=== PATIENT | male | born 1965 | race Hispanic/Latino ===

== ENCOUNTER 2020-10-09 06:29 | Day surgery (SDC) | payer OTHER ==
[~2020-10-09] VITALS: Ht 167.6 cm; Wt 81.6 kg
[~2020-10-09 06:29] MED LIST: 0.9%NACL 1000ML 1,000 ML IV ONE; ALLO300T2 PO; VITAD50000 PO
[2020-10-09 07:32] VITALS: BP 150/81
[2020-10-09] MEDS ORDERED: PROPOFOL 10 MG/ML 20ML VIAL IV ONE ×2 (08:23)
[2020-10-09 08:40] VITALS: BP 110/71
[2020-10-09 08:57] VITALS: BP 135/85
[2020-10-09 09:13] VITALS: BP 139/89
== END 2020-10-09 09:16 | disposition home or self-care (01) ==
LOC: DAH 06:29 → ENDO 06:29
PROVIDERS: ATTEND Internal Medicine Gastroenterology
DX: Z12.11 Encounter for screening for malignant neoplasm of colon (principal); Z20.822 Contact with and (suspected) exposure to COVID-19; K63.5 Polyp of colon; M19.90 Unspecified osteoarthritis, unspecified site; M10.9 Gout, unspecified; Z80.0 Family history of malignant neoplasm of digestive organs; Z72.89 Other problems related to lifestyle
CPT/HCPCS: 45380; 45385; 87635; A4215 ×2; A4221; A4222; A4223; A4606; A4620; A4657; A4663; C9803; J2704 ×2; J7030